=== PATIENT | male | born 1950 | race Caucasian/White ===

== ENCOUNTER 2018-09-27 11:02 | Observation (INO) | payer OTHER ==
[2018-09-27] MEDS ORDERED: HYDROmorphONE/DILAUDID 2 MG/ML INJ IVP ONE ×2 (11:19→13:12)
[2018-09-27] MEDS ORDERED: NS 1,000 ML IV ONE (11:19)
[2018-09-27] MEDS ORDERED: ONDANSETRON 4 MG/2 ML VIAL IVP ONE (11:19)
--- NOTE | 2018-09-27 11:20 | EDPHY ---
General - History Smoking Status: Never smoked Time Seen by Provider: 09/27/18 11:19 Narrative: CLINICAL IMPRESSION: Right distal ureteral stone, hydronephrosis, leukocytosis ASSESSMENT/PLAN: Patient is a 68-year-old male with a history of coronary artery disease, postop day 1 from right rotator cuff repair and multiple kidney stones presents to the emergency department with right flank pain, right lower quadrant pain, urinary retention, nausea and vomiting. Patient is afebrile, he is very uncomfortable appearing however not toxic-appearing. Patient had urinary retention, bedside ultrasound revealed 400 cc of retained urine. A Prasad catheter was placed with some relief of his discomfort. His abdomen was soft, mild tenderness to palpation in the right lower quadrant, associated CVA tenderness. CBC revealed a leukocytosis of 15.5, vital signs were reviewed and there was no evidence of sepsis or serious bacterial illness. Revealed elevated BUN and creatinine consistent with mild a KI. UA with RBCs, no nitrites or leukocytosis. CT abdomen and pelvis w/out revealed 11 mm right distal ureteral stone with associated hydronephrosis. History and physical examination is consistent with 11 mm right distal ureteral stone, hydronephrosis and leukocytosis. Patient was given 1 L of IV fluids and several doses of pain medication with mild improvement of his discomfort. Dr. Torres with Urology was consulted, she will take the patient to the operating room for urgent stent placement. The patient remained hemodynamically stable prior to transfer to PACU. DIFFERENTIAL DX: Flank pain including but not limited to musculoskeletal causes, kidney stone, pyelonephritis, shingles, and intra-abdominal causes such as diverticulitis and appendicitis. ED COURSE: 1130: Dr. Torres is patient's urologist, she is here, available and aware that the patient is in the emergency department. 1135: Patient with 400 cc of retained urine, he is unable to urinate. Will insert Prasad catheter for acute urinary retention. Case discussed with Dr. Scott. 1158: CBC reveals a leukocytosis of 16,000. Patient with mild relief after Prasad catheter placement. No obvious gross hematuria. 1220: Urinalysis with red blood cells. Patient's BUN is 24, creatinine is 1.3. Last 1 in our records is in 2015 where BUN was found to be 12 and creatinine was 1.1 at that time. 1241: Patient back from CT, he is much more comfortable appearing. He is no longer shaking, states that his pain has improved. 1249: Discussed with Dr. Rubio, 11 mm obstructing stone in the right distal ureter. Discussed case with Dr. Torres, patient will need urgent ureteral stenting, will transfer to the PACU for preop. 1259: On repeat exam the patient reports that his pain is returning, located mostly in his kidney region. His abdomen remained soft with mild tenderness in the right side. Discussed results with patient and , no further questions at this time. CHIEF COMPLAINT: Nausea, vomiting, right flank pain and right lower quadrant pain HPI: Patient is a 68-year-old male with a history of coronary artery disease and kidney stones who presents to the emergency department with complaints of right flank pain, right lower quadrant pain, intermittent testicular pain, nausea, vomiting and urinary retention. Patient is postop day 1 status post right rotator cuff surgery performed at [facility], reports some lower abdominal discomfort yesterday which he felt was attributed to his prostate as he has had discomfort like that in the past. Patient reports this morning at around 6:30 a.m. He had a sudden onset of increased right lower quadrant pain as well as right flank pain. He is having intermittent sensation that his right testicle is being squeezed, denies any testicular pain in the emergency department. Patient has had multiple episodes of vomiting which he attributes to pain. He took CBD and oxycodone prior to arrival for his scheduled postop right shoulder pain medication. He has had no relief of his discomfort of his abdominal pain. On his way to the hospital he had multiple episodes of emesis, denies any hematemesis. Patient does have a history of kidney stones, reports 5 episodes in the past. He does have a history of lithotripsy and states that his pain today is very typical for when he has kidney stones. Patient denies any chest pain or shortness of breath. Patient also endorses that he feels that he needs to use the bathroom however he cannot urinate. Denies any change in bowel habits. PMH: Coronary artery disease, acute NM, kidney stones Pertinent Past Surgical History: Left shoulder, right shoulder, parathyroidectomy, hernia repair Family History: Not contributory Social History: Denies cigarette smoking or illicit drug use REVIEW OF SYSTEMS: All other systems negative Constitutional: No fever, no chills. Eyes: No discharge, vision change ENT: No sore throat, congestion, ear pain. Cardiovascular: No chest pain, no palpitations. Respiratory: No cough, no shortness of breath. Gastrointestinal: Abdominal pain, nausea and vomiting Genitourinary: Urinary retention. No hematuria, dysuria, flank pain. Musculoskeletal: Right flank pain. No back pain, joint swelling, joint pain, myalgias. Skin: No rashes, color change. Neurological: No headache, dizziness, weakness. PHYSICAL EXAM: General Appearance: Patient is very uncomfortable appearing however not toxic- appearing. HENT: Normocephalic, atraumatic. Bilateral external ears are normal. Bilateral tympanic membranes are normal with pearly valera reflex. Nares are clear, mucosa is pink. Oropharynx is clear however mucosa is very dry, uvula is midline. There is no tonsillar enlargement or exudate. The dentition is normal. Eyes: PERRLA, EOMI. Conjunctiva pink, no pallor or injection. Neck: Supple, nontender, no lymphadenopathy, no midline pain, FROM. Respiratory: There are no retractions, lungs are clear to auscultation. Cardiac: Regular rate and rhythm, no murmurs or gallops. Gastrointestinal: Patient's abdomen is soft, he is tender in the right lower quadrant without rebound or guarding. No masses or hernias appreciated. Right CVA tenderness. Neurological: Alert and oriented x 3, CN 2-12 grossly intact, normal sensation and strength Skin: Warm, dry, no rashes, no nodules on palpation. Musculoskeletal: Extremities are symmetrical, no deformity, swelling, or erythema. Patient with dressing intact to the right shoulder from recent rotator cuff surgery. No upper arm pain, extremity otherwise unremarkable. 2+ radial pulse. Psychiatric: Mood and affect are normal, there is no agitation. MEDICAL DECISION MAKING: Patient was seen independently. Secondary supervising physician at time of evaluation was Dr. Scott. Diagnosis: 11 mm Right distal ureteral stone with associated hydronephrosis, leukocytosis. Summary: See Assessment and Plan for summary of ED visit Clinical lab tests: ordered / reviewed. Independent visualization of images, tracing, or specimens: Yes. Decision to obtain medical records or history from someone other than the patient: Yes, Review / Summarize previous medical records: Yes Discussed patient with another provider: Yes, Dr. Scott and Dr. Torres Patient Progress: Stable, admit. (Teresa Winchester) The patient was evaluated and managed by the physician ophthalmic assistant. I have reviewed this chart and I agree with the findings and plan of care as documented , as indicated by my signature. I am the secondary supervising physician. ( Yenifer Scott) - Objective Vital Signs: Initial Vital Signs Temperature (C) 36.7 C 09/27/18 11:11 Heart Rate 48 L 09/27/18 11:11 Respiratory Rate 20 09/27/18 11:11 Blood Pressure 150/77 H 09/27/18 11:11 O2 Sat (%) 100 09/27/18 11:11 O2 Delivery Mode Room Air Allergies/Adverse Reactions: No Known Allergies Allergy (Verified 09/27/18 11:07) Home Medications: Medication Instructions Recorded Allopurinol [Allopurinol 300 MG 300 mg PO BID@09/27/18 (RX)] Aspirin EC [Aspirin EC 81 mg (*)] 81 mg PO DAILY 09/27/18 Atorvastatin Calcium 80 mg PO DAILY@18 09/27/18 Clopidogrel Bisulfate [Plavix (*)] 75 mg PO DAILY 09/27/18 Levothyroxine [Synthroid 125 mcg 125 mcg PO DAILY06 09/27/18 (*)] Lisinopril [Zestril 2.5 mg (*)] 2.5 mg PO DAILY 09/27/18 Acetaminophen [Tylenol 325mg (*)] 650 mg PO Q4HRS PRN #60 tab 09/28/18 Cephalexin [Keflex (*)] 500 mg PO TID #21 cap 09/28/18 Oxybutynin Chloride 5 mg PO Q8H PRN #21 tablet 09/28/18 Tamsulosin HCl [Flomax 0.4 MG (*)] 0.4 mg PO DAILY #60 cap 09/28/18 Laboratory Results: Laboratory Results 09/27/18 11:27 09/27/18 11:27 Medications Given: Discontinued Medications Acetaminophen (Tylenol) 650 mg PO Q4HRS PRN PRN Reason: Pain, Mild/Fever, Can Take PO Stop: 03/27/19 11:36 Last Admin: 09/28/18 11:43 Dose: 650 mg Allopurinol (Allopurinol) 300 mg PO BID@09,1830 [facility] Stop: 03/26/19 18:29 Last Admin: 09/28/18 10:16 Dose: 300 mg Aspirin Buffered (Aspirin Ec) 81 mg PO DAILY [facility] Stop: 03/26/19 18:14 Last Admin: 09/28/18 10:18 Dose: 81 mg Atorvastatin Calcium (Lipitor) 80 mg PO DAILY@1800 [facility] Stop: 03/26/19 17:59 Last Admin: 09/27/18 18:39 Dose: 80 mg Belladonna Alkaloids/Opium (B & O) Confirm Administered Dose 1 each ID .STK-MED ONE Stop: 09/27/18 13:57 Last Admin: 09/27/18 14:53 Dose: 1 each Cephalexin HCl (Keflex) 500 mg PO Q8H [facility] PRN Reason: Protocol Stop: 10/27/18 15:44 Last Admin: 09/27/18 17:06 Dose: 500 mg Clopidogrel Bisulfate (Plavix) 75 mg PO DAILY [facility] Stop: 03/26/19 18:14 Last Admin: 09/28/18 10:16 Dose: 75 mg Fentanyl (Sublimaze) 50 - 100 mcg IVP .Q5MIN PRN PRN Reason: PAIN, PACU Stop: 09/27/18 15:46 Last Admin: 09/27/18 16:16 Dose: 50 mcg Fentanyl (Sublimaze) 25 - 100 mcg IVP Q5M PRN PRN Reason: PACU, IMMEDIATE Pain control Stop: 09/27/18 15:33 Last Admin: 09/27/18 15:51 Dose: 25 mcg Hydromorphone HCl (Dilaudid) 0.5 mg IVP EDNOW ONE Stop: 09/27/18 11:20 Last Admin: 09/27/18 11:27 Dose: 0.5 mg Hydromorphone HCl (Dilaudid) 0.5 mg IVP EDNOW ONE Stop: 09/27/18 13:13 Last Admin: 09/27/18 13:25 Dose: Not Given Sodium Chloride (Ns) 1,000 mls @ 0 mls/hr IV EDNOW ONE; Wide Open PRN Reason: Protocol Stop: 09/27/18 11:20 Last Admin: 09/27/18 11:27 Dose: 1,000 mls Ceftriaxone Sodium 2 gm/ (Sodium Chloride) 50 mls @ 100 mls/hr IV EDNOW ONE PRN Reason: Protocol Stop: 09/27/18 13:21 Last Admin: 09/27/18 15:18 Dose: Not Given Lactated Ringer's (Lr) 1,000 mls @ 0 mls/hr IV ONCE ONE PRN Reason: As Directed Stop: 09/27/18 13:21 Last Admin: 09/27/18 14:08 Dose: 1,000 mls Dextrose/Lactated Ringer's (D5w Lr) 1,000 mls @ 75 mls/hr IV CONT [facility] Stop: 03/26/19 15:44 Last Admin: 09/28/18 05:53 Dose: 1,000 mls Ceftriaxone Sodium 2 gm/ (Sodium Chloride) 50 mls @ 100 mls/hr IV DAILY [facility] PRN Reason: Protocol Stop: 10/28/18 08:59 Last Admin: 09/28/18 10:18 Dose: 50 mls Iopamidol (Isovue-M 300) Confirm Administered Dose 30 ml .ROUTE .STK-MED ONE Stop: 09/27/18 13:58 Last Admin: 09/27/18 15:18 Dose: Not Given Levothyroxine Sodium (Synthroid) 125 mcg PO DAILY06 [facility] Stop: 03/26/19 18:14 Last Admin: 09/28/18 05:53 Dose: 125 mcg Lidocaine (Uroject Lidocaine 2% Jelly) Confirm Administered Dose 20 ml .ROUTE .STK-MED ONE Stop: 09/27/18 13:57 Last Admin: 09/27/18 15:18 Dose: 20 ml Lidocaine (Uroject Lidocaine 2% Jelly) 20 ml UR ONCE ONE Stop: 09/28/18 13:51 Last Admin: 09/28/18 14:00 Dose: 20 ml Lisinopril (Zestril) 2.5 mg PO DAILY [facility] Stop: 03/26/19 18:14 Last Admin: 09/28/18 10:16 Dose: 2.5 mg Lorazepam (Ativan Injection) 1 mg IVP EDNOW ONE Stop: 09/27/18 11:53 Last Admin: 09/27/18 12:27 Dose: Not Given Ondansetron HCl (Zofran) 4 mg IVP EDNOW ONE Stop: 09/27/18 11:20 Last Admin: 09/27/18 11:27 Dose: 4 mg Oxycodone/Acetaminophen (Percocet 5/325) 2 tab PO Q4HRS PRN PRN Reason: Pain, Severe Able to Take PO Stop: 10/07/18 20:20 Last Admin: 09/28/18 14:51 Dose: 2 tab Polyethylene Glycol (Miralax) 17 gm PO DAILY [facility] Stop: 03/26/19 15:59 Last Admin: 09/28/18 16:00 Dose: Not Given Senna/Docusate Sodium (Senokot-S) 1 tab PO BID [facility] Stop: 03/26/19 20:59 Last Admin: 09/28/18 10:15 Dose: 1 tab Tamsulosin HCl (Flomax) 0.4 mg PO DAILY [facility] Stop: 03/27/19 08:59 Last Admin: 09/28/18 10:17 Dose: 0.4 mg Point of Care Test Results: Chemistry 09/27/18 11:31 POC Sodium 134 mEq/L L mEq/L (135-145) POC Potassium 3.4 mEq/L mEq/L (3.3-5.0) POC Chloride 100 mEq/L mEq/L (97-110) POC Total CO2 19 mEq/L L mEq/L (22-31) POC BUN 24 mg/dL H mg/dL (7-23) POC Creatinine 1.3 mg/dL mg/dL (0.7-1.3) POC Glucose 149 mg/dL H mg/dL (70-100) ISTAT H&H 09/27/18 11:31 POC Hgb 16.3 gm/dL gm/dL (13.7-17.5) POC Hct 48 % % (40-51) Departure - Departure Disposition: To OP Cath/Surgery Clinical Impression: Ureteral stone Leukocytosis Qualifiers: Leukocytosis type: unspecified Qualified Code(s): D72.829 - Elevated white blood cell count, unspecified Abdominal pain Qualifiers: Abdominal location: right lower quadrant Qualified Code(s): R10.31 - Right lower quadrant pain Condition: Good
[2018-09-27 11:47] LABS: PLATELET COUNT 204 10^3/uL (150-400)
[2018-09-27] MEDS ORDERED: LORazepam 2 MG/ML INJ IVP ONE (11:52)
[2018-09-27] MEDS ORDERED: LIDOCAINE 2% JELLY 20 ML (UROJECT) ONE ×2 (12:06→13:56)
[2018-09-27] MEDS ORDERED: LR 1,000 ML IV ONE (13:20)
[2018-09-27] MEDS ORDERED: fentaNYL 100 MCG/2 ML INJ ONE ×3 (13:39→15:46)
[2018-09-27] MEDS: fentaNYL 100 MCG/2 ML INJ IVP PRN ×3 (13:55→16:16)
[2018-09-27] MEDS ORDERED: OPIUM/BELLADONNA ALKALO SUPP PR ONE (13:56)
[2018-09-27] MEDS ORDERED: IOPAMIDOL (ISOVUE-M 300) 15 ML VIAL ONE (13:57)
--- NOTE | 2018-09-27 13:57 | PDCONSULT ---
Tire Technician Note: RFC right obs stone, leukocytosis, urinary retention HPI 68M w right flank, right scrotal pain that started yesterday, +emesis, nausea, terrible pain. Hx kidney stones. Hx CAD. Right rotater cuff surgery yesterday. Serum WBC 15. CT noncon abd/pel personally reviewed - right 1cm distal ureteral stone, associated hydronephrosis and hydroureter. Small nonobs left renal stone. Right renal cyst, type of cyst not clear on noncon images. ROS 10 pt ros performed, as stated in HPI, otherwise neg. PMH stones, shoulder surgery FH/Sh noncontributory Labs: UA +RBC, WBC 1-3, serum Cr 1.2 A/P R obs ureteral stone, urinary retention, leukocytosis, recent shoulder surgery To the OR for R ureteral stent to decompress Right collecting system. Concern for infection above the stone. Will obtain UCx in the OR after stent placed. Consent received.
[2018-09-27] MEDS ORDERED: PROPOFOL 200 MG/20 ML VIAL ONE (14:03)
[2018-09-27] MEDS ORDERED: LIDOCAINE 2% 100 MG/5 ML SYR ONE (14:03)
[2018-09-27] MEDS ORDERED: ROCURONIUM 50 MG/5 ML VIAL ONE (14:03)
--- NOTE | 2018-09-27 14:24 | PDANEPAE ---
ANE History of Present Illness emergent ureteroscopy ANE Past Medical History - Cardiovascular History Hx Coronary Artery / Peripheral Vascular Disease: Yes Cardiovascular History Comment: [place] 2107--stents - Pulmonary History Hx Oxygen in Use at Home: No - Endocrine History Hx Diabetes: No Hypothyroid: Yes ANE Review of Systems Review of Systems: - Exercise capacity Exercise capacity: >=4 METS ANE Patient History - Allergies Allergies/Adverse Reactions: No Known Allergies Allergy (Verified 09/27/18 11:07) - Home Medications Home Medications: ALLOPURINOL 11/25/10 [Last Taken Unknown] SYNTHROID 11/25/10 [Last Taken Unknown] Lipitor 09/27/18 [Last Taken Unknown] Plavix 09/27/18 [Last Taken Unknown] oxyCODONE CR 09/27/18 [Last Taken Unknown] - NPO status NPO Since - Liquids (Date): 09/27/18 NPO Since - Liquids (Time): 07:00 NPO Since - Solids (Date): 09/26/18 NPO Since - Solids (Time): 22:00 - Anes Hx Anes Hx: no prior problems - Smoking Hx Smoking Status: Never smoked - Alcohol Use Alcohol Use: Rarely ANE Labs/Vital Signs - Labs Result Diagrams: 09/27/18 11:27 09/27/18 11:27 - Vital Signs Blood Pressure: 140/80 Heart Rate: 53 Respiratory Rate: 16 O2 Sat (%): 98 Height: 177.8 cm Weight: 68.039 kg ANE Physical Exam - Airway Neck exam: FROM Mallampati Score: Class 2 Mouth exam: normal dental/mouth exam - Pulmonary Pulmonary: no respiratory distress, clear to auscultation - Cardiovascular Cardiovascular: regular rate and rhythym, no murmur, rub, or gallop - ASA Status ASA Status: II, E ANE Anesthesia Plan Anesthesia Plan: general endotracheal anesthesia Urgent/Emergent Case: Brenden ledbetter completed preop but documented later for safe timely pt care
[2018-09-27] MEDS ORDERED: HYDROmorphONE/DILAUDID 1 MG/ML INJ IVP PRN ×2 (14:33→15:43)
[2018-09-27] MEDS ORDERED: NALOXONE HCL 0.4 MG/ML INJ IVP PRN (14:33)
[2018-09-27] MEDS ORDERED: DIAZEPAM 10 MG/2 ML SYR IVP PRN (14:33)
[2018-09-27] MEDS ORDERED: ACETAMINOPHEN 500 MG TAB PO PRN (14:33)
[2018-09-27] MEDS ORDERED: oxyCODONE IR 5 MG TAB PO PRN (14:33)
[2018-09-27] MEDS ORDERED: HYDROCODONE/APAP 5/325 TAB PO PRN ×2 (14:33→15:43)
[2018-09-27] MEDS ORDERED: ONDANSETRON 4 MG/2 ML VIAL IVP PRN ×2 (14:33→15:43)
[2018-09-27] MEDS ORDERED: fentaNYL 100 MCG/2 ML INJ IVP PRN (14:33)
--- NOTE | 2018-09-27 15:12 | POSTANESTH ---
Post Anesthetic Evaluation Cardiovascular Status: Normal, Stable, Similar to Pre-Op Cond Respiratory Status: Normal, Stable, Similar to Pre-op Cond. Level of Consciousness/Mental Status: Can Participate in Eval, Alert and Oriented Pain Control: Adequate, Prn Tx Ordered Nausea/Vomiting Control: Adequate, Prn Tx Ordered Complications Possibly Related to Anesthesia: None Noted
[2018-09-27] MEDS ORDERED: OPIUM/BELLADONNA ALKALO SUPP PR PRN (15:43)
--- NOTE | 2018-09-27 15:43 | POSTOPPROG ---
Post Op Note Date of Operation: 09/27/18 Surgeon: Torrie Torres Anesthesiologist: Divya Anesthesia: LMA Pre-op Diagnosis: right obstructing ureteral stone, leukocytosis, hx CAD Post-op Diagnosis: same Indication: right obstructing ureteral stone, leukocytosis, hx CAD Procedure: cysto, R ureteral stent placement, intraop fluoro Findings: lg rt distal ureteral stone, diffiuclt placement 2/2 median lobe, hematuria Inf/Abcess present in the surg proc area at time of surgery?: No EBL: Minimal Complications: none, pt tolerated procedure well Drains: Other (tucker)
[2018-09-27] MEDS ORDERED: CEPHALEXIN 500 MG CAP PO SCH (15:45)
[2018-09-27] MEDS: POLYETHYLENE GLYCOL 3350 17 GM PKT PO SCH (17:06)
[2018-09-27] MEDS: D5W LR 1,000 ML IV SCH (17:06)
[2018-09-27] MEDS ORDERED: ATORVASTATIN CALCIUM 40 MG TAB PO SCH (18:00)
[2018-09-27] MEDS: LEVOTHYROXINE 125 MCG TAB PO SCH (18:30)
[2018-09-27] MEDS: ALLOPURINOL 300 MG TAB PO SCH (18:39)
[2018-09-27] MEDS: LISINOPRIL 5 MG TAB PO SCH (18:39)
[2018-09-27] MEDS: CLOPIDOGREL BISULFATE 75 MG TAB PO SCH (18:39)
[2018-09-27] MEDS: ASPIRIN EC 81 MG TAB PO SCH (18:39)
[2018-09-27] MEDS: SENNOSIDES/DOCUSATE SODIUM TAB PO SCH (20:38)
[2018-09-27] MEDS: OXYCODONE/APAP 5/325 TAB PO PRN (20:38)
[2018-09-28] MEDS: OXYCODONE/APAP 5/325 TAB PO PRN ×3 (00:39→14:51)
[2018-09-28 04:36] LABS: PLATELET COUNT 184 10^3/uL (150-400)
[2018-09-28] MEDS: D5W LR 1,000 ML IV SCH (05:53)
[2018-09-28] MEDS: LEVOTHYROXINE 125 MCG TAB PO SCH (05:53)
[2018-09-28] MEDS ORDERED: TAMSULOSIN HCL 0.4 MG CAP PO SCH (09:00)
[2018-09-28] MEDS: SENNOSIDES/DOCUSATE SODIUM TAB PO SCH (10:15)
[2018-09-28] MEDS: ALLOPURINOL 300 MG TAB PO SCH (10:16)
[2018-09-28] MEDS: CLOPIDOGREL BISULFATE 75 MG TAB PO SCH (10:16)
[2018-09-28] MEDS: LISINOPRIL 5 MG TAB PO SCH (10:16)
[2018-09-28] MEDS: ASPIRIN EC 81 MG TAB PO SCH (10:18)
[2018-09-28] MEDS ORDERED: ACETAMINOPHEN 325 MG TAB PO PRN (11:37)
[2018-09-28] MEDS ORDERED: LIDOCAINE 2% JELLY 20 ML (UROJECT) UR ONE (13:50)
--- NOTE | 2018-09-28 14:09 | SOAPPROG ---
SOAP Progress Note Assessment/Plan: Assessment: Right ureteral stone, s/p stent yesterday. CAD s/p stents placed 7 mo ago, need for anticoag Urinary retention - failed voiding trial today Leukocytosis resolved Plan: Place tucker. Return to clinic Tues for voiding trial. Oxybutynin for bladder spasms/urine reflux from stent Abx for now given recent leukocytosis, recent ortho procedure and stone. Flomax daily for now. We will be in communication to schedule him for stone removal. 09/28/18 14:06 09/28/18 14:09 Subjective: Unable to void. Otherwise feeling well. Objective: Vital Signs Temp Pulse Resp BP Pulse Ox 36.3 C 50 L 18 138/76 H 100 09/28/18 12:00 09/28/18 12:00 09/28/18 12:00 09/28/18 12:00 09/28/18 12:00 Laboratory Results 09/28/18 04:15 09/28/18 04:15 09/27/18 09/28/18 09/29/18 05:59 05:59 05:59 Intake Total 1801 Output Total 0503 1110 Balance -674 -1110 Gen NAD A&O CV regular Lungs normal effort Abd sot Ext warm ICD10 Worksheet Patient Problems: Problems Problem Status Onset Abdominal pain Acute Leukocytosis Acute Ureteral stone Acute
[2018-09-28 15:55] VITALS: BP 114/67
[2018-09-28] MEDS: POLYETHYLENE GLYCOL 3350 17 GM PKT PO SCH (16:00)
--- NOTE | 2018-09-28 16:09 | ASMTLACE ---
LACE Length of stay for Answers: 1 day current admission Acuity / Level of Answers: No Care: Did the patient have an inpatient admission? Comorbidities - select Answers: Coronary Artery Disease all that apply Previous myocardial infarction Other Notes: Hypothyroid # of Emergency department Answers: 1-2 visits in the last 6 months Score: 6 Date Signed: 09/28/2018 04:08 PM Electronically Signed By:Supriya Rasheed RN
--- NOTE | 2018-09-28 21:23 | GOP ---
[f rep st] OPERATIVE REPORT DATE OF OPERATION: 09/27/2018 SURGEON: Torrie Torres MD ANESTHESIA: LMA. ANESTHESIOLOGIST: Aiden Stokes MD. PREOPERATIVE DIAGNOSIS: 1. Right obstructing ureteral stone. 2. Leukocytosis. 3. Recent heart attack 7 months ago, on anticoagulation. POSTOPERATIVE DIAGNOSIS: 1. Right obstructing ureteral stone. 2. Leukocytosis. 3. Recent heart attack 7 months ago, on anticoagulation. PROCEDURE PERFORMED: 1. Cystoscopy. 2. Right ureteral stent placement. 3. Intraoperative fluoroscopy. FINDINGS: A large right distal ureteral stone and difficult stent placement secondary to a very prom inent median lobe that was very friable and led to hematuria, obscuring visualization of the right ur eteral orifice. ESTIMATED BLOOD LOSS: Minimal. INDICATIONS: The patient just underwent right rotator cuff surgery 2 days ago and then developed rig ht-sided back pain that went into the testicle. He had severe nausea and intractable pain this morni ng, and he called my office and we instructed him to go to the ER for evaluation. In the ER, they fo und he had a leukocytosis of 16, and also CT showed a 1 cm distal right ureteral stone with significa nt hydronephrosis proximal to the stone. Due to the leukocytosis, his recent coronary artery disease with stents, and also, due to his recent shoulder surgery, I elected to place a stent to decompress his system. The rationale, risks, and benefits were discussed, including the risk of bleeding, infec tion, pain, inability to place the stent, need for percutaneous nephrostomy tube, and he understood t hese and agreed to proceed. DESCRIPTION OF PROCEDURE: The patient was taken back to the cystoscopy suite, placed on the cystosco py table in supine position. General anesthesia induced without complication. Time-out performed. Core measures satisfied, including placement of a Maryam Hugger, SCDs, and he had already had administr ation of Rocephin antibiotics in the ER. He was brought to the end of the table, placed in dorsal li thotomy position. All pressure points padded. Genitalia draped and prepped in the standard surgical fashion with Betadine. Rigid cystoscope easily cannulated the urethral meatus and was advanced atra umatically into the bladder. He did have a very prominent median lobe. There was hematuria in the b ladder. He had a Prasad catheter placed in the ER, and I feel that this likely stirred up some bleedi ng. I got into the bladder with the cystoscope and it was very hard to visualize the mucosa as well as visualize the ureteral orifices due to this very prominent median lobe. I easily found the left u reteral orifice, but the right was very difficult to find. I had to go from the 30-degree to the 70- degree lens, and that eventually allowed me to find the right ureteral orifice. I was able to cannul ate it with a wire with the help of a 5-[place] open-ended catheter, and advanced that wire into the r ight collecting system, and then I placed a 6-[place] multivariable stent with a nice curl in the blad iesha and a nice curl in the renal pelvis with fluoroscopic and cystoscopic guidance. This was a chall enging stent placement due to the location of the ureteral orifice being very close to that median lo be, him being on his anticoagulation because of the recent cardiac stent, and also the hematuria in t he bladder. It did take me at least [address] the stent due to that, but the stent was wel l placed, his system was decompressed, and I was pleased at the end of the procedure. A Prasad cathet er was placed and belladonna and opium placed per rectum. At this point, the procedure was consider ed complete. He was awoken from anesthesia and transferred to PACU in good condition. COMPLICATIONS: None. DRAINS: A Prasad catheter. /[id number]/MODL
== END 2018-09-28 18:16 | disposition home or self-care (01) ==
LOC: FSGY 13:54 → F3E 14:04 → F1N 16:41
PROVIDERS: ADMIT Urology; ATTEND Urology
DX: N13.2 Hydronephrosis with renal and ureteral calculous obstruction (principal); R33.9 Retention of urine, unspecified; Z98.890 Other specified postprocedural states; I25.2 Old myocardial infarction; Z87.442 Personal history of urinary calculi
CPT/HCPCS: 52332; 74176; 76000; 96361; 96374; 96375; 99285; C1758; C1769; G0378; 82435-PO; 82565-PO; 82947-PO; 84132-PO; 84295-PO; 84520-PO; 85014-ER; C2625; J0696; J1170; J2001; J2405; J2704; J3010; Q9967

== ENCOUNTER 2018-09-29 11:57 | Emergency (ER) | payer OTHER ==
--- NOTE | 2018-09-29 12:27 | EDPHY ---
H & P Stated Complaint: blocked catheter Time Seen by Provider: 09/29/18 12:22 HPI/ROS: HPI: This is a 68-year-old male who presents with Chief Complaint: Blocked Prasad catheter Location: Quality: Blocked Prasad catheter Duration: Since waking up this morning Signs and Symptoms: no fever, no nausea, no vomiting, no hematemesis, no blood in stool, no abdominal bloating, no diarrhea, no back pain, no urinary symptoms , no testicular/groin pain, no indigestion, no chest pain, no shortness of breath Timing: Acute Severity: [id number] Context: Patient had rotator cuff surgery, recent right ureteral stent placement for right ureteral stone measuring 11 mm, discharged from [address] [place] [address] yesterday morning with Prasad catheter. Prasad catheter drained approximately 1200 mL all day yesterday. Patient woke up this morning without any Prasad catheter drainage and suprapubic fullness. Denies nausea, vomiting, fevers. Currently wearing shoulder immobilizer from rotator cuff surgery. Modifying Factors: None Comment: ROS: A comprehensive 10 system review of systems is otherwise negative aside from elements mentioned in the history of present illness. MEDICAL/SURGICAL/SOCIAL HISTORY: Medical history: CAD with stents on Plavix, hyperlipidemia, hypothyroid, kidney stones, right shoulder sx, goat, hernia Surgical history: Right rotator cuff surgery, cardiac stents, right ureteral stent Social history: . Never smoked. Family history noncontributory. CONSTITUTIONAL: Extremely polite and cooperative elderly white male, awake and alert, no obvious distress HEENT: Atraumatic and normocephalic, PERRL, EOMI. Nares patent; no rhinorrhea; no nasal mucosal edema. Tympanic membranes clear. Oropharynx clear, no exudate and moist pink mucosa. Airway patent. No lymphadenopathy. No meningismus. Cardiovascular: Normal S1/S2, regular rate, regular rhythm, without murmur rub or gallop. PULMONARY/CHEST: Symmetrical and nontender. Clear to auscultation bilaterally. Good air movement. No accessory muscle usage. ABDOMEN: Soft, nondistended, nontender, no rebound, no guarding, no peritoneal signs, no masses or organomegaly. No CVAT. Male : circumcised penis, bilateral descended testes, no testicular swelling, no testicular masses, no penile discharge, no lesions, negative Prehn's sign. Prasad catheter in place in urethra EXTREMITIES: 2/2 pulses, strength 5/5, right shoulder immobilizer in place, no deformities, no clubbing, no cyanosis or edema. NEUROLOGICAL: no focal neuro deficits. GCS 15. SKIN: Warm and dry, no erythema. no rash. Good capillary refill. Source: Patient, Family Exam Limitations: No limitations - Personal History Current Tetanus Diphtheria and Acellular Pertussis (TDAP): Yes - Medical/Surgical History Hx Asthma: No Hx Chronic Respiratory Disease: No Hx Diabetes: No Hx Cardiac Disease: Yes Hx Renal Disease: No Hx Cirrhosis: No Hx Alcoholism: No Hx HIV/AIDS: No Hx Splenectomy or Spleen Trauma: No Other PMH: CAD with stents, hyperlipidemia, hypothyroid, kidney stones, right shoulder sx, goat, hernia, R ureter stent - Social History Smoking Status: Never smoked Constitutional: Initial Vital Signs Temperature (C) 36.7 C 09/29/18 12:09 Heart Rate 55 L 09/29/18 12:09 Respiratory Rate 16 09/29/18 12:09 Blood Pressure 167/87 H 09/29/18 12:09 O2 Sat (%) 99 09/29/18 12:09 O2 Delivery Mode Room Air Allergies/Adverse Reactions: No Known Allergies Allergy (Verified 09/27/18 11:07) Home Medications: Medication Instructions Recorded Allopurinol [Allopurinol 300 MG 300 mg PO BID@09/27/18 (RX)] Aspirin EC [Aspirin EC 81 mg (*)] 81 mg PO DAILY 09/27/18 Atorvastatin Calcium 80 mg PO DAILY@18 09/27/18 Clopidogrel Bisulfate [Plavix (*)] 75 mg PO DAILY 09/27/18 Levothyroxine [Synthroid 125 mcg 125 mcg PO DAILY06 09/27/18 (*)] Lisinopril [Zestril 2.5 mg (*)] 2.5 mg PO DAILY 09/27/18 Acetaminophen [Tylenol 325mg (*)] 650 mg PO Q4HRS PRN #60 tab 09/28/18 Cephalexin [Keflex (*)] 500 mg PO TID #21 cap 09/28/18 Oxybutynin Chloride 5 mg PO Q8H PRN #21 tablet 09/28/18 Tamsulosin HCl [Flomax 0.4 MG (*)] 0.4 mg PO DAILY #60 cap 09/28/18 Medical Decision Making ED Course/Re-evaluation: Vital signs reviewed and show elevated blood pressure. Patient is on blood thinners of Plavix due to coronary artery disease Bladder thrk=913 mL. Post residual bladder scan equals 0 mL RN at bedside irrigating Prasad catheter with blood clots returned 1340: Notified by RN that patient is requesting to be discharged home. Urine is clearing and only a few some small blood clots noted in yellow urine. RN performed Prasad catheter flushing and care extensively with patient and . Patient will be discharged home with follow-up with Urology. This patient was seen under the supervision of my secondary supervising physician. I evaluated and cared for this patient independently. Differential Diagnosis: Differential diagnosis includes but is not limited to Prasad catheter malfunction , Prasad catheter clotting and obstruction. Departure - Departure Disposition: Home, Routine, Self-Care Clinical Impression: Indwelling Prasad catheter present Prasad catheter problem Qualifiers: Encounter type: initial encounter Qualified Code(s): T83.9XXA - Unspecified complication of genitourinary prosthetic device, implant and graft, initial encounter Condition: Good Instructions: Prasad Catheter Placement and Care (ED), Prasad Catheter Removal ( DC) Additional Instructions: Please follow-up with Urology as directed. Referrals: Azar Ely MD [Primary Care Provider] - As per Instructions Torrie Torres MD [Medical Doctor] - As per Instructions
[2018-09-29 14:05] VITALS: BP 146/86
== END 2018-09-29 14:04 | disposition home or self-care (01) ==
PROC: 3E1K78Z Irrigation of Genitourinary Tract using Irrigating Substance, Via Natural or Artificial Opening (ICD-10-PCS; principal; 2018-09-29)
PROC: 4A0D7LZ Measurement of Urinary Volume, Via Natural or Artificial Opening (ICD-10-PCS; principal; 2018-09-29)
DX: T83.9XXA Unspecified complication of genitourinary prosthetic device, implant and graft, initial encounter (principal); E03.9 Hypothyroidism, unspecified; E78.5 Hyperlipidemia, unspecified; Z87.442 Personal history of urinary calculi; Z96.0 Presence of urogenital implants

== ENCOUNTER 2018-10-02 00:32 | Observation (INO) | payer OTHER ==
--- NOTE | 2018-10-02 00:41 | EDPHY ---
H & P Stated Complaint: blocked tucker Time Seen by Provider: 10/02/18 00:41 HPI/ROS: HPI CHIEF COMPLAINT: Tucker catheter problem. "I believe my Tucker catheter is blocked". HISTORY OF PRESENT ILLNESS: Patient is a 68-year-old male, history of coronary disease, hyperlipidemia, recent kidney stone with ureter stent, and Tucker catheter placement. He arrives to the emergency room stating that his Tucker catheter is blocked. He is having a lot of bladder pressure and states that he is feeling the urge to urinate but is unable to do so. Denies vomiting or fever. Patient states he has lot of bladder pressure penile discomfort. This started around 10 30 tonight. It is now 1:00 a.m.. No back pain. He states he had a ureteral stent right ureter. Past Medical History: Significant medical history for coronary artery disease with stents, hyperlipidemia, thyroid disease, ureteral stent Past Surgical History: Cardiac stents, ureteral stent, hernia Social History: Denies drugs alcohol tobacco. Family History: Noncontributory ROS REVIEW OF SYSTEMS: 10 Systems were reviewed and negative with the exception of the elements mentioned in the history of present illness. Exam Constitutional triage nursing summary reviewed, vital signs reviewed, awake/ alert. Eyes normal conjunctivae and sclera, EOMI, PERRLA. HENT normal inspection, atraumatic, moist mucus membranes, no epistaxis, neck supple/ no meningismus, no raccoon eyes. Respiratory clear to auscultation bilaterally, normal breath sounds, no respiratory distress, no wheezing. Cardiovascular rate normal, regular rhythm, no murmur, no edema, distal pulses normal. Gastrointestinal soft, non-tender, no rebound, no guarding, normal bowel sounds, no distension, no pulsatile mass. Genitourinary Tucker catheter in place. Musculoskeletal right arm in shoulder immobilizer, no midline vertebral tenderness, full range of motion, no calf swelling, no tenderness of extremities , no meningismus, good pulses, neurovascularly intact. Skin pink, warm, & dry, no rash, skin atraumatic. Neurologic awake, alert and oriented x 3, AAOx3, moves all 4 extremities equally, motor intact, sensory intact, CN II-XII intact, normal cerebellar, normal vision, normal speech. Psychiatric normal mood/affect. Heme/Lymph/Immune no lymphadenopathy. Differential Diagnosis: Includes but is not limited to in a particular order Tucker catheter obstruction, malposition of the Tucker catheter, Medical Decision Making: Plan for this patient will remove Tucker catheter is giving discomfort, replaced irrigate his bladder. IV establishment basic bloods. Re-evaluation: 0236am: Patient is a [address] [place] [address] catheter in with continuous irrigation. He has hematuria he did clog [address] catheter a 2nd one was placed. Given the bleeding plan for admission the hospital for ongoing continuous bladder irrigation and and management and observation 0235AM: Spoke with Dr. Chapin, who agrees to admit. Ultrasound obtained retroperitoneum limited shows no sonographic evidence of hydronephrosis there are bilateral simple renal cyst as above decompressed urinary bladder with Tucker catheter in place echogenic fluid is present urine debris most likely hemorrhagic content clot. Faxed me by direct Radiology at 2: 51 a.m.. Source: Patient - Personal History Current Tetanus/Diphtheria Vaccine: Yes Current Tetanus Diphtheria and Acellular Pertussis (TDAP): Yes - Medical/Surgical History Hx Asthma: No Hx Chronic Respiratory Disease: No Hx Diabetes: No Hx Cardiac Disease: Yes Hx Renal Disease: No Hx Cirrhosis: No Hx Alcoholism: No Hx HIV/AIDS: No Hx Splenectomy or Spleen Trauma: No Other PMH: CAD with stents, hyperlipidemia, hypothyroid, kidney stones, right shoulder sx, goat, hernia, R ureter stent - Social History Smoking Status: Never smoked Constitutional: Initial Vital Signs Temperature (C) 36.8 C 10/02/18 00:37 Heart Rate 88 10/02/18 00:37 Respiratory Rate 18 10/02/18 00:37 Blood Pressure 167/108 H 10/02/18 00:37 O2 Sat (%) 99 10/02/18 00:37 O2 Delivery Mode Room Air Allergies/Adverse Reactions: No Known Allergies Allergy (Verified 10/02/18 00:38) Home Medications: Medication Instructions Recorded Allopurinol [Allopurinol 300 MG 300 mg PO BID@09/27/18 (RX)] Aspirin EC [Aspirin EC 81 mg (*)] 81 mg PO DAILY 09/27/18 Atorvastatin Calcium 80 mg PO DAILY@18 09/27/18 Clopidogrel Bisulfate [Plavix (*)] 75 mg PO DAILY 09/27/18 Levothyroxine [Synthroid 125 mcg 125 mcg PO DAILY06 09/27/18 (*)] Lisinopril [Zestril 2.5 mg (*)] 2.5 mg PO DAILY 09/27/18 Acetaminophen [Tylenol 325mg (*)] 650 mg PO Q4HRS PRN #60 tab 09/28/18 Cephalexin [Keflex (*)] 500 mg PO TID #21 cap 09/28/18 Oxybutynin Chloride 5 mg PO Q8H PRN #21 tablet 09/28/18 Tamsulosin HCl [Flomax 0.4 MG (*)] 0.4 mg PO DAILY #60 cap 09/28/18 Medical Decision Making - Data Points Laboratory Results: Laboratory Results 10/02/18 01:29 10/02/18 01:29 10/02/18 10/02/18 10/02/18 02:30 01:29 01:29 WBC RBC Hgb Hct MCV MCH MCHC RDW Plt Count MPV Neut % (Auto) Lymph % (Auto) Brewster % (Auto) Eos % (Auto) Baso % (Auto) Nucleat RBC Rel Count Absolute Neuts (auto) Absolute Lymphs (auto) Absolute Monos (auto) Absolute Eos (auto) Absolute Basos (auto) Absolute Nucleated RBC Immature Gran % Immature Gran # PT 12.2 SEC SEC (12.0-15.0) INR 0.94 (0.83-1.16) APTT 24.0 SEC SEC (23.0-38.0) Sodium 138 mEq/L mEq/L (135-145) Potassium 3.5 mEq/L mEq/L (3.5-5.2) Chloride 106 mEq/L mEq/L (97-110) Carbon Dioxide 18 mEq/l L mEq/l (22-31) Anion Gap 14 mEq/L mEq/L (6-14) BUN 32 mg/dL H mg/dL (7-23) Creatinine 1.0 mg/dL mg/dL (0.7-1.3) Estimated GFR > 60 Glucose 125 mg/dL H mg/dL (70-100) Calcium 9.2 mg/dL mg/dL (8.5-10.4) Patient ABO/Rh Pending Antibody Screen Pending 10/02/18 01:29 WBC 10.19 10^3/uL H 10^3/uL (3.80-9.50) RBC 4.97 10^6/uL 10^6/uL (4.40-6.38) Hgb 14.2 g/dL g/dL (13.7-17.5) Hct 41.3 % % (40.0-51.0) MCV 83.1 fL fL (81.5-99.8) MCH 28.6 pg pg (27.9-34.1) MCHC 34.4 g/dL g/dL (32.4-36.7) RDW 17.0 % H % (11.5-15.2) Plt Count 243 10^3/uL 10^3/uL (150-400) MPV 10.0 fL fL (8.7-11.7) Neut % (Auto) 65.3 % % (39.3-74.2) Lymph % (Auto) 22.2 % % (15.0-45.0) Brewster % (Auto) 8.9 % % (4.5-13.0) Eos % (Auto) 2.6 % % (0.6-7.6) Baso % (Auto) 0.6 % % (0.3-1.7) Nucleat RBC Rel Count 0.0 % % (0.0-0.2) Absolute Neuts (auto) 6.66 10^3/uL H 10^3/uL (1.70-6.50) Absolute Lymphs (auto) 2.26 10^3/uL 10^3/uL (1.00-3.00) Absolute Monos (auto) 0.91 10^3/uL H 10^3/uL (0.30-0.80) Absolute Eos (auto) 0.26 10^3/uL 10^3/uL (0.03-0.40) Absolute Basos (auto) 0.06 10^3/uL 10^3/uL (0.02-0.10) Absolute Nucleated RBC 0.00 10^3/uL 10^3/uL (0-0.01) Immature Gran % 0.4 % % (0.0-1.1) Immature Gran # 0.04 10^3/uL 10^3/uL (0.00-0.10) PT INR APTT Sodium Potassium Chloride Carbon Dioxide Anion Gap BUN Creatinine Estimated GFR Glucose Calcium Patient ABO/Rh Antibody Screen Medications Given: Discontinued Medications Sodium Chloride (Ns) 1,000 mls @ 0 mls/hr IV EDNOW ONE; Wide Open PRN Reason: Protocol Stop: 10/02/18 00:57 Last Admin: 10/02/18 01:32 Dose: 1,000 mls Lidocaine (Uroject Lidocaine 2% Jelly) 20 ml UR EDNOW ONE Stop: 10/02/18 01:28 Last Admin: 10/02/18 01:15 Dose: 20 ml Departure - Departure Disposition: [facility] Inpatient Acute Clinical Impression: Hematuria Condition: Fair
[2018-10-02] MEDS ORDERED: LIDOCAINE 2% JELLY 20 ML (UROJECT) ONE (00:49)
[2018-10-02] MEDS ORDERED: NS 1,000 ML IV ONE (00:56)
[2018-10-02] MEDS ORDERED: LIDOCAINE 2% JELLY 20 ML (UROJECT) UR ONE (01:27)
[2018-10-02 01:33] LABS: PLATELET COUNT 243 10^3/uL (150-400)
[2018-10-02 01:42] LABS: INR 0.94 (0.83-1.16); PROTIME(PATIENT) 12.2 SEC (12.0-15.0)
[2018-10-02] MEDS ORDERED: ONDANSETRON 4 MG/2 ML VIAL IVP ONE (02:52)
[2018-10-02] MEDS ORDERED: HYDROmorphONE/DILAUDID 2 MG/ML INJ IVP ONE (02:52)
[2018-10-02] MEDS ORDERED: OPIUM/BELLADONNA ALKALO SUPP PR PRN (03:49)
[2018-10-02] MEDS ORDERED: ONDANSETRON 4 MG/2 ML VIAL IVP PRN (03:49)
[2018-10-02] MEDS ORDERED: HYDROmorphONE/DILAUDID 1 MG/ML INJ IVP PRN (03:49)
--- NOTE | 2018-10-02 04:00 | PDCONSULT ---
Hearing Therapy Director Note: RFC hematuria, clot retention Requested by Jackson HPI 68M w CAD recent cardiac stents on plavix w right ureteral stent placed for obs right ureteral stone, leukocytosis. DC w tucker 2/2 hematuria from enlarged median lobs prostate and urinary retention. ER tonight for clot retention, pain. 25F placed by ER, manual irrigation removed some clots, but tucker not draining well due to clots. Urology called for assistance, admission. High risk patient due to recent cardiac stents and need for anticoag. ROS 10pt ROS as stated in HPI, otherwise neg PMH CAD, kidney stones, HPT. PSH recent shoulder surgery, heart and ureteral stent FH/SH noncontributory PE AFVSS Gen NAD A&O CV regular Lungs Normal effort Abd soft Ext warm 26F in place, manual irrigation by urology w 1L NS removed 250+cc clot, catheter now draining clear fluid, CBI running well. A/P Gross hematuria Need for plavix anticoag due to recent cardiac stenting Stent likely causing hematuria due to irrigating prostate tissue and irritating of ureteral tissue. Will work on adding on right URS today to treat stone and minimize time needed w stent. Admit to [facility] Continue plavix and ASA, no need to hold for procedure. NPO, Ancef, IVF CBI
[2018-10-02] MEDS: D5W LR 1,000 ML IV SCH ×2 (05:48→20:06)
[2018-10-02] MEDS: ceFAZolin 2 GM/DEXTROSE 100 ML IV SCH ×3 (05:48→21:32)
[2018-10-02] MEDS: SENNOSIDES/DOCUSATE SODIUM TAB PO SCH ×2 (09:42→20:07)
[2018-10-02] MEDS: ASPIRIN EC 81 MG TAB PO SCH (09:49)
[2018-10-02] MEDS: CLOPIDOGREL BISULFATE 75 MG TAB PO SCH (09:49)
--- NOTE | 2018-10-02 10:06 | ASMTCASEMG ---
Living Arrangements What is your living Answers: With Spouse arrangement? Who do you live with? Type Of Residence What kind of residence do Answers: House you live in? Discharge Plan Comments Coordination Status Comments Notes: Patient is a 68yo male with a hx of CAD, hyperlipidemia, recent kidney stone and tucker catheter placement who comes to the ER due to blocked tucker catheter. Patient is being admitted OBS for ongoing continous bladder irrigation and observation. No therapy orders at this time. Patient will likely discharge independent. D/C plan TBD. CM will follow. Date Signed: 10/02/2018 10:05 AM Electronically Signed By:Diamante Boo LCSW
[2018-10-02] MEDS ORDERED: ACETAMINOPHEN 325 MG TAB PO PRN (17:38)
[2018-10-02] MEDS ORDERED: LIDOCAINE 2% JELLY 6 ML TOPICAL SYR TP PRN (17:40)
[2018-10-02] MEDS: HYDROCODONE/APAP 5/325 TAB PO PRN (20:24)
[2018-10-03] MEDS: ceFAZolin 2 GM/DEXTROSE 100 ML IV SCH ×3 (06:06→21:25)
[2018-10-03] MEDS: LEVOTHYROXINE 125 MCG TAB PO SCH (06:06)
[2018-10-03] MEDS: ASPIRIN EC 81 MG TAB PO SCH (08:18)
[2018-10-03] MEDS: ALLOPURINOL 300 MG TAB PO SCH ×2 (08:18→21:20)
[2018-10-03] MEDS: CLOPIDOGREL BISULFATE 75 MG TAB PO SCH (08:18)
[2018-10-03] MEDS: SENNOSIDES/DOCUSATE SODIUM TAB PO SCH ×2 (08:18→21:20)
[2018-10-03] MEDS: HYDROCODONE/APAP 5/325 TAB PO PRN ×2 (10:30→21:20)
[2018-10-03] MEDS ORDERED: LIDOCAINE 2% JELLY 20 ML (UROJECT) ONE (15:15)
[2018-10-03] MEDS ORDERED: OPIUM/BELLADONNA ALKALO SUPP PR ONE (15:16)
[2018-10-03] MEDS ORDERED: IOPAMIDOL (ISOVUE-M 300) 15 ML VIAL ONE (15:16)
[2018-10-03] MEDS ORDERED: NS 1,000 ML IV ONE (15:25)
--- NOTE | 2018-10-03 15:34 | PDANEPAE ---
ANE Past Medical History - Cardiovascular History Hx Hypertension: Yes Hx Arrhythmias: No Hx Coronary Artery / Peripheral Vascular Disease: Yes Hx CHF / Valvular Disease: No Hx Palpitations: No Cardiovascular History Comment: [place] [address]--stents - Pulmonary History Hx COPD: No Hx Asthma/Reactive Airway Disease: No Hx Recent Upper Respiratory Infection: No Hx Oxygen in Use at Home: No Hx Sleep Apnea: No Sleep Apnea Screening Result - Last Documented: Negative - Endocrine History Hx Diabetes: No Hypothyroid: Yes Hyperthyroid: No Obesity: no - Renal History Hx Renal Disorders: Yes Renal History Comment: elevated BUN most likely due to ureterolithiasis - Chronic Pain History Chronic Pain: No - Surgical History Prior Surgeries: R shoulder ANE Review of Systems Review of Systems: - Exercise capacity Exercise capacity: >=4 METS, limited by disability ANE Patient History - Allergies Allergies/Adverse Reactions: apricot Allergy (Verified 10/02/18 09:35) cat dander Allergy (Verified 10/02/18 09:35) horse dander Allergy (Verified 10/02/18 09:35) bugs Allergy (Uncoded 10/02/18 09:35) environmental Allergy (Uncoded 10/02/18 09:36) - Home Medications Home Medications: Allopurinol [Allopurinol 300 MG (RX)] 300 mg PO BID@09,1830 09/27/18 [Last Taken 10/01/18 09:00] Aspirin EC [Aspirin EC 81 mg (*)] 81 mg PO DAILY 09/27/18 [Last Taken 10/01/18] Atorvastatin Calcium 80 mg PO DAILY18 09/27/18 [Last Taken 09/30/18] Clopidogrel Bisulfate [Plavix (*)] 75 mg PO DAILY 09/27/18 [Last Taken 10/01/18] Levothyroxine [Synthroid 125 mcg (*)] 125 mcg PO DAILY06 09/27/18 [Last Taken ] Lisinopril [Zestril 2.5 mg (*)] 2.5 mg PO DAILY 09/27/18 [Last Taken 10/01/18] Cephalexin [Keflex (*)] 500 mg PO TIDMEAL 10/02/18 [Last Taken 10/01/18 18:00] Nitroglycerin [Nitrostat 0.4 mg (*)] 0.4 mg SL Q5M PRN 10/02/18 [Last Taken Unknown] oxyCODONE IR [Oxycodone Ir (*)] 5 - 10 mg PO Q4-6PRN PRN 10/02/18 [Last Taken ] - NPO status NPO Since - Liquids (Date): 10/03/18 NPO Since - Liquids (Time): 00:00 NPO Since - Solids (Date): 10/03/18 NPO Since - Solids (Time): 00:00 - Anes Hx Anes Hx: no prior problems - Smoking Hx Smoking Status: Never smoked Marijuana use: No - Alcohol Use Alcohol Use: Rarely - Family Anes Hx Family Anes Hx: neg - N/A ANE Labs/Vital Signs - Labs Result Diagrams: 10/02/18 01:29 10/02/18 01:29 - Vital Signs Blood Pressure: 139/74 Heart Rate: 63 Respiratory Rate: 20 O2 Sat (%): 89 Height: 177.8 cm Weight: 68.039 kg ANE Physical Exam - Airway Neck exam: FROM Mallampati Score: Class 2 Mouth exam: normal dental/mouth exam - Pulmonary Pulmonary: no respiratory distress, no rales or rhonchi, clear to auscultation - Cardiovascular Cardiovascular: regular rate and rhythym - ASA Status ASA Status: III ANE Anesthesia Plan Anesthesia Plan: general endotracheal anesthesia Total IV Anesthesia: No
[2018-10-03] MEDS ORDERED: LR 1,000 ML IV ONE (16:16)
[2018-10-03] MEDS ORDERED: fentaNYL 100 MCG/2 ML INJ ONE ×4 (16:27→19:35)
--- NOTE | 2018-10-03 16:47 | PDHPUP ---
History & Physical Update H&P update statement: This history and physical update is based on an assessment of the patient which was completed after admission or registration (within 24 hours), but prior to the surgery/procedure. H&P update: H&P reviewed & patient examined, no change in patient's condition since H&P completed
[2018-10-03] MEDS ORDERED: PROPOFOL 200 MG/20 ML VIAL ONE (16:48)
[2018-10-03] MEDS ORDERED: ONDANSETRON 4 MG/2 ML VIAL ONE (16:52)
[2018-10-03] MEDS ORDERED: ROCURONIUM 50 MG/5 ML VIAL ONE (16:52)
[2018-10-03] MEDS ORDERED: LIDOCAINE 2% 2 ML INJ ONE ×2 (16:58)
[2018-10-03] MEDS ORDERED: KETOROLAC 30 MG/1 ML SDV ONE (17:00)
[2018-10-03] MEDS ORDERED: fentaNYL 100 MCG/2 ML INJ IVP ONE (17:00)
[2018-10-03] MEDS ORDERED: PHENYLEPHRINE HCL 100 MCG/ML SYR ONE (17:01)
[2018-10-03] MEDS ORDERED: ePHEDrine SULFATE 25 MG/5 ML SYR ONE (17:13)
[2018-10-03] MEDS ORDERED: NALOXONE HCL 0.4 MG/ML INJ IVP PRN (17:14)
[2018-10-03] MEDS ORDERED: ONDANSETRON 4 MG/2 ML VIAL IVP PRN (17:14)
[2018-10-03] MEDS ORDERED: fentaNYL 100 MCG/2 ML INJ IVP PRN (17:14)
[2018-10-03] MEDS ORDERED: PROMETHAZINE HCL 25 MG/ML INJ IVP PRN (17:14)
[2018-10-03] MEDS ORDERED: PHENYLEPHRINE HCL 100 MCG/ML SYR IVP PRN (17:14)
[2018-10-03] MEDS ORDERED: MEPERIDINE 25 MG/0.5 ML AMP IVP PRN (17:14)
[2018-10-03] MEDS ORDERED: ACETAMINOPHEN 500 MG TAB PO PRN (17:14)
[2018-10-03] MEDS ORDERED: LR 500 ML IV PRN (17:14)
[2018-10-03] MEDS ORDERED: ATORVASTATIN CALCIUM 40 MG TAB PO SCH (18:00)
[2018-10-03] MEDS ORDERED: NEOSTIGMINE METHYLSULFATE 10 MG/10 ML MDV ONE (18:13)
[2018-10-03] MEDS ORDERED: GLYCOPYRROLATE 0.2 MG/1 ML VIAL ONE ×4 (18:13)
--- NOTE | 2018-10-03 19:12 | POSTOPPROG ---
Post Op Note Date of Operation: 10/03/18 Surgeon: Torrie Torres Anesthesiologist: Mckenna Anesthesia: GET(General Endotracheal) Pre-op Diagnosis: right ureteral stone, gross hematuria, BPH, CAD, anticoagulated Post-op Diagnosis: same Indication: right ureteral stone, gross hematuria, BPH, CAD, anticoagulated Procedure: cysto,RURS,laser,stent,ext stone, RGP,clot evac,fulguration prostate tissue Findings: R distal stone, clot, active bleeding prominant median lobe of prostate Inf/Abcess present in the surg proc area at time of surgery?: No EBL: Minimal Complications: None, pt tolerated procedure well Drains: Other (tucker) Specimen(s): stone
[2018-10-03] MEDS ORDERED: HYDROmorphONE/DILAUDID 1 MG/ML INJ ONE (19:30)
[2018-10-03] MEDS ORDERED: MEPERIDINE 25 MG/0.5 ML AMP ONE (19:36)
--- NOTE | 2018-10-03 19:49 | GOP ---
[f rep st] OPERATIVE REPORT DATE OF OPERATION: 10/03/2018 SURGEON: Torrie Torres MD ANESTHESIA: General. ANESTHESIOLOGIST: Mehran Duffy DO. PREOPERATIVE DIAGNOSIS: Right ureteral stone, gross hematuria, BPH, and coronary artery disease with recent cardiac stent placement and need for anticoagulation. POSTOPERATIVE DIAGNOSIS: Right ureteral stone, gross hematuria, BPH, and coronary artery disease wit h recent cardiac stent placement and need for anticoagulation. PROCEDURE PERFORMED: Cystoscopy, right ureteroscopy, laser lithotripsy, stent, basket extraction of stone, retrograde pyelogram, intraoperative fluoroscopy, clot evacuation, and fulguration of bleeding prostate tissue. FINDINGS: Right distal stone, clot, active bleeding, and a prominent median lobe of prostate. SPECIMENS: Stone. ESTIMATED BLOOD LOSS: Minimal. INDICATIONS: The patient presented to the ER last week with leukocytosis and a right obstructing sto ne. Due to concern for infection, he underwent a right stent placement, which was difficult due to a ctive bleeding of the prostate. It was uncertain when that initiated. It likely initiated when a Fo vianney catheter was placed in the ER at his presentation. Nonetheless, a stent was placed on the right side for a 1 cm distal obstructing ureteral stone. He was discharged with a Prasad and was doing fine until Monday evening when he started having gross hematuria and obstruction of his catheter. He cam e to the [facility] ER where I irrigated it manually, admitted him on continuous bladder irrigation, and the n planned a ureteroscopy procedure today with clot evacuation and possible fulguration of any activel y bleeding tissue. The risks were thoroughly explained including bleeding, infection, pain, injury t o the urethra, the bladder, or the right ureteral orifice; need for subsequent procedures, inability to treat the stone, need for a stent, inability to place a stent, and need for a percutaneous nephros nuha tube. He understood this and agreed to proceed. DESCRIPTION OF PROCEDURE: The patient was taken back to the cystoscopy suite and placed on the cysto scopy table in the supine position. General anesthesia was induced without complication. Time-out p erformed. Core measures satisfied, including placement of a Maryam Hugger and SCD administration. He had been receiving q.8 h. Ancef. He was brought to the table and placed in the dorsal lithotomy posi tion. All pressure points were padded and extra care taken to supporting his right shoulder, which h ad recent shoulder surgery last week. He was then prepped and draped in the standard surgical fashio n with Betadine. A rigid cystoscope easily cannulated the urethral meatus and was advanced atraumati rosaura into the bladder. There was clot in the bladder. I did remove some of this clot, and I did no te that there was active bleeding from the prostate. My goal at this point was to treat the stone as I felt the prostate was being irritated by a stent, and the sooner I could get the stone treated, th e sooner the stent could come out. I saw the stent, grasped it with a grasper, externalized the dist al end, and placed 2 Glidewires, 1 through the stent and 1 alongside it into the right collecting sys tem. I removed the scope and placed a Prasad catheter for decompression of the bladder. I then advan [place] a semi-rigid ureteroscope into the right collecting system and encountered the distal ureteral st one. It was very large. I lasered it into fine dust and a few small basketable fragments. I used a basket to basket the fragments. Otherwise, everything was dust and sand. I advanced the ureterosco pe all the way up into the right collecting system into the renal pelvis, and there were no other sto roxie to be seen, and no stones had flown up into the renal pelvis. His ureter was edematous where the stone was lodged, but otherwise looked healthy, and I had a safety wire still up. I did do a retrog rade pyelogram and noted a dilated collecting system on the right, but no extravasation of any contra st in the ureter. I then had a safety wire. I back loaded this into the cystoscope, and then placed a 6-[place] multivariable stent with fluoroscopic and cystoscopic guidance. There was a nice curl in the renal pelvis and a nice curl in the bladder. I extracted stones from the bladder. Then, I extr acted clot and did a clot evacuation. There was active bleeding at the prostate, so I removed the cy stoscope and then assembled a TURis resectoscope with a loop. I advanced this with a visual obturato r into the bladder and worked on fulgurating the prostate tissue. The median lobe was prominent. It was friable, and I did have to fulgurate quite a bit of the surface of the median lobe. It was acti vely oozing. I was able to find the left ureteral orifice and make sure that I did not injure this d uring the fulguration. The right orifice was protected with the stent, and I did not come near the r ight ureteral orifice with the electrocautery loop. At the end, I did end up fulgurating the median lobe of the prostate, as well as some of the prostatic urethra. At the end, he was hemostatic. The resectoscope was removed and the lidocaine jelly placed per urethra. Then, a 24-[place] 3-way cathete r was placed and CBI initiated. CBI ran clear, and the balloon was inflated with [address] At this point, I then placed a belladonna opium suppository, and the procedure was now consider ed complete. He was awoken from anesthesia and transferred to the PACU in good condition. INFECTION: None. COMPLICATIONS: None. DRAINS: Prasad. /[id number]/MODL
[2018-10-03] MEDS: D5W LR 1,000 ML IV SCH (21:22)
[2018-10-04] MEDS: HYDROCODONE/APAP 5/325 TAB PO PRN (03:16)
[2018-10-04] MEDS: ceFAZolin 2 GM/DEXTROSE 100 ML IV SCH (05:54)
[2018-10-04] MEDS: LEVOTHYROXINE 125 MCG TAB PO SCH (05:54)
[2018-10-04] MEDS: D5W LR 1,000 ML IV SCH (08:46)
[2018-10-04] MEDS: ASPIRIN EC 81 MG TAB PO SCH (08:52)
[2018-10-04] MEDS: SENNOSIDES/DOCUSATE SODIUM TAB PO SCH (08:52)
[2018-10-04] MEDS: ALLOPURINOL 300 MG TAB PO SCH (08:52)
[2018-10-04] MEDS: CLOPIDOGREL BISULFATE 75 MG TAB PO SCH (08:52)
--- NOTE | 2018-10-04 12:18 | SOAPPROG ---
SOAP Progress Note Assessment/Plan: Assessment: s/p R URS, laser, stent, fulguration prostate tissue. Plan: Voiding trial. Continue antioag/ASA Gen diet Stop fluids and encourage PO Ambulate. DC later today once he has voided sufficiently 10/04/18 12:16 Subjective: Doing well Urine clear Pain well controlled Leora diet Objective: Vital Signs Temp Pulse Resp BP Pulse Ox 36.4 C 51 L 20 117/68 96 10/04/18 08:41 10/04/18 08:41 10/04/18 08:41 10/04/18 08:41 10/04/18 08:41 10/03/18 10/04/18 10/05/18 05:59 05:59 05:59 Intake Total 1143.75 1649 Output Total 5550 825 Balance -4406.25 824 PT 12.2 SEC (12.0-15.0) 10/02/18 01:29 INR 0.94 (0.83-1.16) 10/02/18 01:29 Gen NAD A*O CV regular Lungs Normal effort Abd soft Ext warm urine clear. Prasad in place. - Pending Discharge Pending Discharge Within 24 Hours: Yes Pending Discharge Date: 10/05/18 Pending Discharge Time: 11:00 ICD10 Worksheet Patient Problems: Problems Problem Status Onset Hematuria Acute Abdominal pain Acute Leukocytosis Acute Ureteral stone Acute
[2018-10-04 12:19] VITALS: BP 116/64
--- NOTE | 2018-10-04 13:36 | ASDISCHSUM ---
Discharge Information Plan Status:Home with Home Health Medically Cleared to Leave: Discharge Date: CM D/C Disposition:Home, Routine, Self-Care ADT D/C Disposition:Home, Routine, Self-Care Projected Discharge Date: Transportation at D/C: Discharge Delay Reason: Follow-Up Date: Discharge Slot: Final Diagnosis: Placement Information Patient Contact Information Contact Name:VIRGILIO Relationship: Address:[address] City:[facility] Phone: State/Zip Code:[place] [address] Email: Financial Information Financial Class:HMO and PPO Plans Primary Plan Desc:[facility] Primary Plan Number:[id number] Secondary Plan Desc: Secondary Plan Number: Assessment Information LACE LACE Length of stay for Answers: 2 days current admission Comorbidities - select Answers: Other Notes: Leukocytosis, hematuria all that apply # of Emergency department Answers: 3-4 visits in the last 6 months Score: 6 Date Signed: 10/04/2018 01:35 PM Electronically Signed By:Sara Stinson [facility] Initial CM Assessment Living Arrangements What is your living Answers: With Spouse arrangement? Who do you live with? Type Of Residence What kind of residence do Answers: House you live in? Discharge Plan Comments Coordination Status Comments Notes: Patient is a 68yo male with a hx of CAD, hyperlipidemia, recent kidney stone and tucker catheter placement who comes to the ER due to blocked tucker catheter. Patient is being admitted OBS for ongoing continous bladder irrigation and observation. No therapy orders at this time. Patient will likely discharge independent. D/C plan TBD. CM will follow. Date Signed: 10/02/2018 10:05 AM Electronically Signed By:Diamante Boo LCSW Case Management Discharge Plan Note Case Management Discharge Discharge Order Complete? Answers: Yes Patient to Obtain Answers: via Family Medications Discharge Comments Notes: Pt is medically stable to discharge at this time. Date Signed: 10/04/2018 01:34 PM Electronically Signed By:Sara Stinson Intervention Information
--- NOTE | 2018-10-05 14:32 | CPEKG ---
Test Reason : OPEN Blood Pressure : / mmHG Vent. Rate : 062 BPM Atrial Rate : 061 BPM P-R Int : 157 ms QRS Dur : 103 ms QT Int : 456 ms P-R-T Axes : 073 -08 -27 degrees QTc Int : 463 ms Sinus rhythm Confirmed by Frank Fox ([id number]) on 10/05/2018 2:32:11 PM Referred By: Torrie Torres Confirmed By:Frank Fox
--- NOTE | 2018-10-08 08:40 | GPROG ---
[f rep st] PROGRESS NOTE POSTANESTHETIC EVALUATION After successful extubation in the operatory room, the patient was transferred to the PACU. Full rep ort was given to the attending RN in the PACU. The patient was left in a stable cardiorespiratory co ndition. The patient's pain control was well-controlled with p.r.n. medication ordered. The patient had no nausea or vomiting. The patient was able to participate in his own evaluation. Overall, the re were no anesthetic complications. /[id number]/MODL
== END 2018-10-04 16:54 | disposition home health service (06) ==
LOC: F1N 04:40
PROVIDERS: ADMIT Urology; ATTEND Urology
PROC: 3E1K78Z Irrigation of Genitourinary Tract using Irrigating Substance, Via Natural or Artificial Opening (ICD-10-PCS; 2018-10-02)
PROC: 0W3R8ZZ Control Bleeding in Genitourinary Tract, Via Natural or Artificial Opening Endoscopic (ICD-10-PCS; principal; 2018-10-03 16:15)
PROC: 0TC68ZZ Extirpation of Matter from Right Ureter, Via Natural or Artificial Opening Endoscopic (ICD-10-PCS; principal; 2018-10-03 16:15)
DX: N20.1 Calculus of ureter (principal); N40.0 Benign prostatic hyperplasia without lower urinary tract symptoms; N32.89 Other specified disorders of bladder; I25.10 Atherosclerotic heart disease of native coronary artery without angina pectoris; E03.9 Hypothyroidism, unspecified; E78.5 Hyperlipidemia, unspecified; Z95.5 Presence of coronary angioplasty implant and graft; Z79.01 Long term (current) use of anticoagulants; Z79.82 Long term (current) use of aspirin
CPT/HCPCS: 51700; 52214; 52353; 76000; 76770; 93005; C1758; C1769; G0378; 82365-90; 96374; C2625; J0690; J1170; J1885; J2175; J2370; J2405; J2704; J3010; Q9967

== ENCOUNTER 2018-10-05 02:19 | Emergency (ER) | payer OTHER | END 2018-10-05 04:03 | disposition home or self-care (01) ==